=== PATIENT | female | born 1965 | race Caucasian/White ===

== ENCOUNTER → 2017-10-20 | Outpatient (CLI) | payer OTHER ==
--- NOTE | 2017-10-27 11:06 | TST ---
[facility] [address] [place] [address] TREADMILL STRESS TEST Name: CHRISTIE MORALES Room: [facility] [employer]#: [id number] Admission: 10/20/17 Attend Phys: Catherine Urena Discharge: Date of : 67 Date of Service: 10/21/17 0954 Report #: [id number] THIS REPORT FOR: //name// CC: Catherine Ying DATE OF SERVICE: 10/20/2017 ORDERING PRACTITIONER: Catherine Ying INDICATIONS: Chest pain. CARDIAC HISTORY: Negative. RISK FACTORS: Positive family history. MEDICATIONS: No medications. The patient exercised for 8 minutes 55 seconds, 94%, 10.16 METS. Resting blood pressure 137/80 and heart rate 61. Peak blood pressure 184/91 and heart rate 160. Recovery blood pressure 124/90 and heart rate 71. Test was terminated due to fatigue. No chest pain. Resting ECG is normal. During exercise, there is [address] segment depression at peak exercise, resolved during recovery. IMPRESSION: 1. Clinical portion is negative. 2. Electrocardiographic portion is positive. 3. Exercise function is normal. This is a positive treadmill ECG stress test. Consideration with nuclear imaging may be helpful. <ELECTRONICALLY SIGNED> By: Rajendra Childers MD, FACC 10/27/17 1106 [id number] Rajendra Childers MD, FACC /nt
== END ==
LOC: M.CRD 10:37
DX: R07.9 Chest pain, unspecified (principal)

== ENCOUNTER → 2020-02-28 | Outpatient (CLI) | payer OTHER | LOC: M.CT 08:07 | PROVIDERS: ATTEND Nurse Practitioner Family | DX: Z13.6 Encounter for screening for cardiovascular disorders (principal); I25.10 Atherosclerotic heart disease of native coronary artery without angina pectoris; E78.00 Pure hypercholesterolemia, unspecified ==